=== PATIENT | female | born 1990 | race Caucasian/White ===

== ENCOUNTER → 2018-03-08 | Emergency (ER) | payer MEDICARE, MEDICAID ==
[~2018-03-08] VITALS: Ht 170.2 cm; Wt 61.2 kg
[~2018-03-08] MED LIST: ACETAMINOPHEN-1 EAC1 PO; DEPAKOTE ER500 MG PO; HYDROCODONE-AP1 EAC6 PO; HYDROCODONE-APA1 TA1 PO; NEURONTIN 300300 M1 PO; TRIAMCINOLONE A80 G2 TOP; XANAX1 MG PO
[2018-03-09 00:10] VITALS: BP 128/94
== END ==
LOC: M.ERS 23:15
DX: S43.084A Other dislocation of right shoulder joint, initial encounter (principal); S50.12XA Contusion of left forearm, initial encounter; Z88.1 Allergy status to other antibiotic agents; Z88.0 Allergy status to penicillin; Z88.2 Allergy status to sulfonamides; Z88.6 Allergy status to analgesic agent; X58.XXXA Exposure to other specified factors, initial encounter; Y93.89 Activity, other specified; Y92.89 Other specified places as the place of occurrence of the external cause; Y99.8 Other external cause status